=== PATIENT | male | born 1995 | race Caucasian/White ===

== ENCOUNTER 2020-08-04 12:36 | Emergency (ER) | payer SELFPAY ==
[~2020-08-04] VITALS: Ht 167.6 cm; Wt 89.1 kg
[2020-08-04] MEDS ORDERED: KETOROLAC TROMETHAMINE 60 MG/2 ML VIAL IM ONE (13:30)
[2020-08-04] MEDS ORDERED: ONDANSETRON ODT4 MG PO (14:13)
[2020-08-04] MEDS ORDERED: AZITHROMYCIN500 M3 PO (14:13)
[2020-08-04] MEDS ORDERED: PREDNISONE20 MG PO (14:13)
[2020-08-04 14:28] VITALS: BP 140/77
== END 2020-08-04 14:21 | disposition home or self-care (01) ==
LOC: FSED 12:50
DX: R05 Cough (principal); J20.9 Acute bronchitis, unspecified; J02.9 Acute pharyngitis, unspecified; F17.210 Nicotine dependence, cigarettes, uncomplicated
CPT/HCPCS: 83518; 87400; 96372; 99283